=== PATIENT | female | born 1960 | race Caucasian/White ===

== ENCOUNTER 2017-05-26 05:38 | Inpatient (IN) | payer OTHER ==
[~2017-05-26] VITALS: Ht 154.9 cm; Wt 112.7 kg
[~2017-05-26 05:38] MED LIST: ACET-2744 PO; DSS100 PO; FLUT16H NASAL; HYDR28CR TP; HYPR15DR23 OU; LORA10TA7 PO; PETR3.5O OU; RINGERS SOLUTION,LACTATED 1,000 ML IV ONE; TOLT2TAB2 PO
[2017-05-26] MEDS ORDERED: RINGERS SOLUTION,LACTATED 1,000 ML IV ONE ×2 (05:54→06:36)
[2017-05-26] MEDS ORDERED: SODIUM CL IRRIG SOLN BAG 3,000 ML IRRIG ONE (06:35)
[2017-05-26] MEDS ORDERED: SODIUM CHLORIDE 0.9% 50 ML ONE (06:36)
[2017-05-26] MEDS ORDERED: ACETAMINOPHEN 1000 MG/ISO-OSM 100 ML IV ONE ×2 (06:36→06:45)
[2017-05-26] MEDS ORDERED: BACITRACIN 50,000 UNITS/VIAL ONE (06:36)
[2017-05-26] MEDS ORDERED: SODIUM CHLORIDE 0.9% 0 ML ONE (06:36)
[2017-05-26] MEDS ORDERED: CELECOXIB 200 MG CAPSULE ONE (06:37)
[2017-05-26] MEDS ORDERED: CELECOXIB 200 MG CAPSULE PO ONE (06:45)
[2017-05-26] MEDS ORDERED: ROPIVACAINE HCL 0.2% 100 ML ED ONE (06:56)
[2017-05-26] MEDS ORDERED: TRANEXAMIC ACID 1,000 MG in DEXTROSE 5%-WATER 50 ML IV ONE (07:00)
[2017-05-26] MEDS ORDERED: BUPIVACAINE LIPOSOME/PF 1.3%-13.3MG/ML SUSPENSION 20 ML VIAL INJ ONE (07:00)
[2017-05-26] MEDS ORDERED: BUPIVACAINE HCL/PF 0.5% 30 ML VIAL ONE (07:11)
[2017-05-26] MEDS ORDERED: SODIUM CHLORIDE 0.9% 10 ML ONE (07:11)
[2017-05-26] MEDS ORDERED: SODIUM CHLORIDE 0.9% 1,000 ML IV SCH (07:29)
[2017-05-26] MEDS ORDERED: HYPROMELLOSE 0.5% 15 ML OPHTHALMIC SOLUTION OU PRN (07:30)
[2017-05-26] MEDS ORDERED: ONDANSETRON HCL 4 MG/2 ML VIAL IVP PRN (07:30)
[2017-05-26] MEDS ORDERED: BENZOCAINE/MENTHOL LOZENGE [8 LOZENGES/PACKET] PO PRN (07:30)
[2017-05-26] MEDS ORDERED: BISACODYL 10 MG RECTAL RECTAL SUPPOSITORY PR PRN (07:30)
[2017-05-26] MEDS ORDERED: DiphenhydrAMINE HCL 50 MG/ML VIAL IVP PRN (07:30)
[2017-05-26] MEDS ORDERED: 0.9% SODIUM CHLORIDE 10 ML SYRINGE IVP PRN (07:30)
[2017-05-26] MEDS: OXYGEN THERAPY IH SCH ×3 (08:00→23:04)
[2017-05-26] MEDS ORDERED: HYDROmorphone 2 MG/ML SYRINGE IVP PRN (08:45)
[2017-05-26] MEDS ORDERED: MEPERIDINE-PF 25 MG/ML SYRINGE IVP PRN (08:45)
[2017-05-26] MEDS ORDERED: FentaNYL CITRATE-PF 100 MCG/2 ML VIAL IVP PRN (08:45)
[2017-05-26] MEDS: CELECOXIB 100 MG CAPSULE PO SCH ×2 (09:00→20:34)
[2017-05-26] MEDS: TOLTERODINE TARTRATE 2 MG TABLET PO SCH ×2 (09:00→20:57)
[2017-05-26] MEDS: FLUTICASONE PROPIONATE 50 MCG/SPRAY 16 GM NASAL SPRAY NASAL SCH (09:00)
[2017-05-26] MEDS ORDERED: DOCUSATE SODIUM 100 MG CAPSULE PO SCH (09:00)
[2017-05-26 11:15] VITALS: BP 103/72
[2017-05-26] MEDS ORDERED: DEXAMETHASONE SOD PHOS 4 MG/ML VIAL IVP ONE (12:00)
[2017-05-26] MEDS ORDERED: KETOROLAC TROMETHAMINE 60 MG/2 ML VIAL IM ONE (12:00)
[2017-05-26] MEDS ORDERED: ACETAMINOPHEN/ISO-OSM 1000 MG/100 ML BOTTLE IV ONE (12:00)
[2017-05-26] MEDS ORDERED: EPHEDrine SULFATE 50 MG/ML VIAL IM ONE (12:00)
[2017-05-26] MEDS ORDERED: METOCLOPRAMIDE HCL 5 MG/ML 2 ML VIAL IVP ONE (12:00)
[2017-05-26] MEDS ORDERED: MIDAZOLAM HCL 2 MG/2 ML VIAL IVP ONE (12:00)
[2017-05-26] MEDS ORDERED: ESMOLOL HCL 10 MG/ML 10 ML VIAL IVP ONE (12:00)
[2017-05-26] MEDS ORDERED: LIDOCAINE HCL/PF 2% 5 ML VIAL INJ ONE (12:00)
[2017-05-26] MEDS ORDERED: ROCURONIUM BROMIDE 10 MG/ML 5 ML VIAL IVP ONE (12:00)
[2017-05-26] MEDS ORDERED: FentaNYL CITRATE-PF 100 MCG/2 ML VIAL IVP ONE (12:00)
[2017-05-26] MEDS ORDERED: PROPOFOL 1% 20 ML VIAL IVP ONE (12:00)
[2017-05-26] MEDS ORDERED: GLYCOPYRROLATE 0.2 MG/ML VIAL IM ONE (12:00)
[2017-05-26] MEDS ORDERED: ONDANSETRON HCL 4 MG/2 ML VIAL IVP ONE (12:00)
[2017-05-26] MEDS: HYDROmorphone 2 MG/ML SYRINGE IVP PRN (13:08)
[2017-05-26] MEDS: DOCUSATE SODIUM 100 MG CAPSULE PO SCH ×2 (13:11→20:35)
[2017-05-26] MEDS: CYCLOBENZAPRINE HCL 10 MG TABLET PO SCH ×3 (13:13→20:35)
[2017-05-26] MEDS: BISACODYL 5 MG EC TABLET PO SCH (13:13)
[2017-05-26 15:38] VITALS: BP 95/54
[2017-05-26] MEDS: CeFAZolin 1 GM/DEXTROSE 50 ML IV SCH ×2 (16:06→23:01)
[2017-05-26] MEDS: ACETAMINOPHEN 1000 MG/ISO-OSM 100 ML IV SCH (16:55)
[2017-05-26] MEDS ORDERED: INFLUENZA VIRUS VACCINE QVS 2017-18 (3YR+)/PF 60 MCG/0.5 ML SYRINGE IM ONE (17:00)
[2017-05-26 19:31] VITALS: BP 104/58
[2017-05-26] MEDS: MINERAL OIL/PETROLATUM,WHITE PF 3.5 GM OPHTHALMIC OINTMENT OU SCH (20:42)
[2017-05-26 23:05] VITALS: BP 95/55
[2017-05-27] VITALS (7 sets, daily range): BP systolic 93–106; BP diastolic 47–61
[2017-05-27] MEDS: ACETAMINOPHEN 1000 MG/ISO-OSM 100 ML IV SCH ×2 (00:58→08:59)
[2017-05-27] MEDS: HYDROmorphone 2 MG/ML SYRINGE IVP PRN ×2 (01:56→11:29)
[2017-05-27 07:02] LABS: BASOPHILS % (AUTO) 0.2 % (0.0-2.0); EOSINOPHILS % (AUTO) 0 % (1.0-6.0); HEMATOCRIT 34.2 % (36-46); HEMOGLOBIN 11.7 g/dL (12.0-16.0); LYMPHOCYTES # (AUTO) 1.6 K/uL (1.0-4.8); LYMPHOCYTES % (AUTO) 13.3 % (22.0-44.0); MEAN CORPUSCULAR HEMOGLOBIN 31.6 pg (26.0-34.0); MEAN CORPUSCULAR HGB CONC 34.2 G/dL (31.0-37.0); MEAN CORPUSCULAR VOLUME 93 fL (80-100); MONOCYTES # (AUTO) 0.6 K/uL (0.1-1.0); MONOCYTES % (AUTO) 4.8 % (2.0-9.0); NEUTROPHILS # (AUTO) 9.6 K/uL (1.8-7.7); NEUTROPHILS % (AUTO) 81.7 % (40.0-70.0); PLATELET COUNT (AUTO) 177 K/uL (150-450); RED BLOOD CELL COUNT(AUTO) 3.69 MIL/uL (4.00-5.20); RED CELL DISTRIBUTION WIDTH 13.7 % (11.5-14.5); WHITE BLOOD COUNT (AUTO) 11.8 K/uL (4.5-11.0)
[2017-05-27 07:41] LABS: ANION GAP 5 mmol/L (8-16); CALCIUM, TOTAL 8.4 mg/dL (8.8-10.5); CARBON DIOXIDE 27 mmol/L (22-29); CHLORIDE 108 mmol/L (98-107); CREATININE 0.67 mg/dL (0.60-1.30); GLOMERULAR FILTR. RATE CALC > 60 mL/min (>60); POTASSIUM 4.4 mmol/L (3.5-5.1); SODIUM SERUM 140 mmol/L (136-145); UREA NITROGEN, BLOOD 17 mg/dL (7-18)
[2017-05-27] MEDS: OXYGEN THERAPY IH SCH ×3 (08:00→20:07)
[2017-05-27] MEDS: TOLTERODINE TARTRATE 2 MG TABLET PO SCH ×2 (08:59→19:59)
[2017-05-27] MEDS: DOCUSATE SODIUM 100 MG CAPSULE PO SCH ×2 (08:59→19:59)
[2017-05-27] MEDS: CYCLOBENZAPRINE HCL 10 MG TABLET PO SCH ×3 (08:59→19:59)
[2017-05-27] MEDS ORDERED: RIVAROXABAN 10 MG TABLET PO SCH ×2 (09:00)
[2017-05-27] MEDS: BISACODYL 5 MG EC TABLET PO SCH (09:00)
[2017-05-27] MEDS: CELECOXIB 100 MG CAPSULE PO SCH ×2 (09:00→20:00)
[2017-05-27] MEDS: FLUTICASONE PROPIONATE 50 MCG/SPRAY 16 GM NASAL SPRAY NASAL SCH (09:06)
[2017-05-27] MEDS ORDERED: LACTULOSE 20 GM/30 ML SOLUTION UDCUP PO PRN (12:15)
[2017-05-27] MEDS ORDERED: MAGNESIUM CITRATE 300 ML ORAL SOLUTION PO PRN (12:15)
[2017-05-27] MEDS: OxyCODONE HCL/ACETAMINOPHEN 5-325 MG TABLET PO PRN ×2 (16:36→23:52)
[2017-05-27] MEDS ORDERED: HYDROmorphone 2 MG/ML SYRINGE IVP PRN (16:45)
[2017-05-27] MEDS: RIVAROXABAN 10 MG TABLET PO SCH (17:44)
[2017-05-27] MEDS: MINERAL OIL/PETROLATUM,WHITE PF 3.5 GM OPHTHALMIC OINTMENT OU SCH (20:00)
[2017-05-28] MEDS: OxyCODONE HCL/ACETAMINOPHEN 5-325 MG TABLET PO PRN ×2 (04:54→11:42)
[2017-05-28 04:58] VITALS: BP 105/67
[2017-05-28 06:53] LABS: BASOPHILS # (AUTO) 0.03 K/uL (0.00-0.20); BASOPHILS % (AUTO) 0.4 % (0.0-2.0); EOSINOPHILS # (AUTO) 0.12 K/uL (0.00-0.70); EOSINOPHILS % (AUTO) 1.56 % (1.0-6.0); HEMATOCRIT 32.3 % (36-46); HEMOGLOBIN 10.8 g/dL (12.0-16.0); LYMPHOCYTES # (AUTO) 2.5 K/uL (1.0-4.8); LYMPHOCYTES % (AUTO) 33.2 % (22.0-44.0); MEAN CORPUSCULAR HEMOGLOBIN 31.6 pg (26.0-34.0); MEAN CORPUSCULAR HGB CONC 33.4 G/dL (31.0-37.0); MEAN CORPUSCULAR VOLUME 94 fL (80-100); MONOCYTES # (AUTO) 0.6 K/uL (0.1-1.0); MONOCYTES % (AUTO) 7.3 % (2.0-9.0); NEUTROPHILS # (AUTO) 4.4 K/uL (1.8-7.7); NEUTROPHILS % (AUTO) 57.5 % (40.0-70.0); PLATELET COUNT (AUTO) 150 K/uL (150-450); RED BLOOD CELL COUNT(AUTO) 3.42 MIL/uL (4.00-5.20); RED CELL DISTRIBUTION WIDTH 14.2 % (11.5-14.5); WHITE BLOOD COUNT (AUTO) 7.6 K/uL (4.5-11.0)
[2017-05-28 07:53] VITALS: BP 96/56
[2017-05-28] MEDS: TOLTERODINE TARTRATE 2 MG TABLET PO SCH (10:17)
[2017-05-28] MEDS: BISACODYL 5 MG EC TABLET PO SCH (10:17)
[2017-05-28] MEDS: CYCLOBENZAPRINE HCL 10 MG TABLET PO SCH ×2 (10:18→16:11)
[2017-05-28] MEDS: FLUTICASONE PROPIONATE 50 MCG/SPRAY 16 GM NASAL SPRAY NASAL SCH (10:18)
[2017-05-28] MEDS: DOCUSATE SODIUM 100 MG CAPSULE PO SCH (10:18)
[2017-05-28] MEDS: CELECOXIB 100 MG CAPSULE PO SCH (10:18)
[2017-05-28 11:44] VITALS: BP 107/61
[2017-05-28 15:34] VITALS: BP 97/57
[2017-05-28] MEDS: RIVAROXABAN 10 MG TABLET PO SCH (17:32)
== END 2017-05-28 17:45 | disposition home or self-care (01) | DRG 302 ==
LOC: 4E 05:38
PROVIDERS: ADMIT Orthopaedic Surgery; ATTEND Orthopaedic Surgery
PROC: 0SRD0J9 Replacement of Left Knee Joint with Synthetic Substitute, Cemented, Open Approach (ICD-10-PCS; principal; 2017-05-26 07:30)
DX: M17.12 Unilateral primary osteoarthritis, left knee (principal); Z68.42 Body mass index [BMI] 45.0-49.9, adult; G89.29 Other chronic pain; M54.5 Low back pain; R32 Unspecified urinary incontinence; E66.9 Obesity, unspecified
CPT/HCPCS: 87081; 88300; 97110; 97116; 97161; 97166; 97530; 97535; C9290; G0238; J0131; J0690; J1100; J1170; J1885; J2250; J2405; J2704; J2765; J2795; J3010; J3490; J7030; J7050; J7060; J7120